=== PATIENT | female | born 2000 | race Caucasian/White ===

== ENCOUNTER 2019-08-08 19:46 | Emergency (ER) | payer OTHER ==
[2019-08-08] MEDS ORDERED: ONDANSETRON 4 MG TAB.RAPDIS PO ONE (20:35)
--- NOTE | 2019-08-08 20:37 | ER Document Report ---
ED Medical Screen (RME) - General Chief Complaint: Vomiting Stated Complaint: VOMITING Time Seen by Provider: 08/08/19 20:33 Mode of Arrival: Ambulatory Information source: Patient Notes: 18-year-old female presents emergency department with complaints of vomiting all afternoon. Complaints of nausea. Reports recent exposure to the flu. 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 Denies fever or diarrhea. No complaints of pain with void. I have greeted and performed a rapid initial assessment of this patient. A comprehensive ED assessment and evaluation of the patient, analysis of test results and completion of the medical decision making process will be conducted by additional ED providers. - Related Data Allergies/Adverse Reactions: ceftizoxime [From Cefizox] Adverse Reaction (Verified 08/08/19 20:29) Sulfa (Sulfonamide Antibiotics) Adverse Reaction (Verified 08/08/19 20:29) Home Medications: MIGRAINS. ZOLOFT. IUD Physical Exam - Vital signs Vitals: Temp Pulse Resp BP Pulse Ox 98.3 F 103 H 16 101/83 100 08/08/19 19:55 08/08/19 19:55 08/08/19 19:55 08/08/19 19:55 08/08/19 19:55 Course - Vital Signs Vital signs: Temp Pulse Resp BP Pulse Ox 98.3 F 103 H 16 101/83 100 08/08/19 19:55 08/08/19 19:55 08/08/19 19:55 08/08/19 19:55 08/08/19 19:55
[2019-08-08 21:23] LABS: APPEARANCE,URINE SLIGHTLY-CLOUDY; BILIRUBIN,URINE NEGATIVE (NEGATIVE); COLOR,URINE YELLOW; GLUCOSE, URINE NEGATIVE (NEGATIVE); KETONES,URINE 20 mg/dL (NEGATIVE); LEUKOCYTE ESTERASE,URINE TRACE (NEGATIVE); NITRITE,URINE NEGATIVE (NEGATIVE); PROTEIN,URINE NEGATIVE (NEGATIVE); URINE SPECIFIC GRAVITY 1.026; UROBILINOGEN,URINE NEGATIVE mg/dL (<2.0)
[2019-08-08 21:36] LABS: ABSOLUTE EOSINOPHILS # (AUTO) 0.1 10^3/uL (0.0-0.6); ABSOLUTE LYMPHOCYTES (AUTO) 1.1 10^3/uL (0.5-4.7); ABSOLUTE MONOCYTES (AUTO) 0.5 10^3/uL (0.1-1.4); ABSOLUTE NEUT (AUTO) 10.5 10^3/uL (1.7-8.2); BASOPHILS % (AUTO) 0.2 % (0-2); EOSINOPHILS % (AUTO) 1.1 % (0-6); HEMATOCRIT 44.5 % (36.0-47.0); HEMOGLOBIN 14.9 g/dL (12.0-15.5); LYMPHOCYTES % (AUTO) 8.9 % (13-45); MEAN CORPUSCULAR HEMOGLOBIN 30.9 pg (27.0-33.4); MEAN CORPUSCULAR HGB CONC 33.4 g/dL (32.0-36.0); MEAN CORPUSCULAR VOLUME 92 fl (80-97); MONOCYTES % (AUTO) 4.4 % (3-13); PLATELET COUNT 228 10^3/uL (150-450); RED BLOOD COUNT 4.82 10^6/uL (3.72-5.28); RED CELL DISTRIBUTION WIDTH 12.5 % (11.5-14.0); SEGMENTED NEUTROPHILS % (AUTO) 85.4 % (42-78); TOTAL CELLS COUNTED % (AUTO) 100 %; WHITE BLOOD COUNT 12.3 10^3/uL (4.0-10.5)
[2019-08-08 21:56] LABS: A TYPE INFLUENZA AG NEGATIVE (NEGATIVE); B INFLUENZA AG NEGATIVE (NEGATIVE)
[2019-08-08 22:01] LABS: ALBUMIN 5.4 g/dL (3.5-5.0); ALKALINE PHOSPHATASE 49 U/L (38-126); ANION GAP 16 (5-19); ASPARTATE AMINO TRANSFERASE 30 U/L (14-36); BILIRUBIN,DIRECT 0.1 mg/dL (0.0-0.4); BILIRUBIN,TOTAL 0.5 mg/dL (0.2-1.3); BLOOD UREA NITROGEN 15 mg/dL (7-20); CALCIUM 10.5 mg/dL (8.4-10.2); CARBON DIOXIDE 20 mmol/L (22-30); CHLORIDE 105 mmol/L (98-107); GLUCOSE 93 mg/dL (75-110); POTASSIUM 4.6 mmol/L (3.6-5.0); TOTAL PROTEIN 8.8 g/dL (6.3-8.2)
[2019-08-09] MEDS ORDERED: RINGERS SOLUTION,LACTATED 1,000 ML IV ONE (01:53)
[2019-08-09] MEDS ORDERED: ONDANSETRON HCL INJ/PF 4 MG/2 ML SDV IV ONE (01:53)
--- NOTE | 2019-08-09 01:55 | ER Document Report ---
ED GI/ - General Chief Complaint: Vomiting Stated Complaint: VOMITING Time Seen by Provider: 08/08/19 20:33 Mode of Arrival: Ambulatory Notes: Patient is a 18-year-old female that comes to the emergency department for chief complaint of lower abdominal pain and vomiting. This started earlier today, she states she vomited all day. She denies diarrhea or abnormal bowel movements. She denies fever, flank pain, dysuria, vaginal discharge or bleeding. She denies chest pain, upper abdominal pain. Pain is on both sides. She has an IUD, history of migraines and on Topamax, denies medical history otherwise. She states a few days ago she also started vomiting but this resolved. - Related Data Allergies/Adverse Reactions: ceftizoxime [From Cefizox] Adverse Reaction (Verified 08/08/19 20:29) Sulfa (Sulfonamide Antibiotics) Adverse Reaction (Verified 08/08/19 20:29) Home Medications: MIGRAINS. ZOLOFT. IUD Past Medical History - General Information source: Patient - Social History Smoking Status: Never Smoker Frequency of alcohol use: None Drug Abuse: None Lives with: Family Family History: Reviewed & Not Pertinent Patient has suicidal ideation: No Patient has homicidal ideation: No Surgical Hx: Negative - Immunizations Immunizations up to date: Yes Hx Diphtheria, Pertussis, Tetanus Vaccination: Yes Review of Systems - Review of Systems Constitutional: See HPI EENT: No symptoms reported Cardiovascular: No symptoms reported Respiratory: No symptoms reported Gastrointestinal: See HPI Genitourinary: No symptoms reported Female Genitourinary: No symptoms reported Musculoskeletal: No symptoms reported Skin: No symptoms reported Hematologic/Lymphatic: No symptoms reported Neurological/Psychological: No symptoms reported Physical Exam - Vital signs Vitals: Temp Pulse Resp BP Pulse Ox 98.3 F 103 H 16 101/83 100 08/08/19 19:55 08/08/19 19:55 08/08/19 19:55 08/08/19 19:55 08/08/19 19:55 - Notes Notes: GENERAL: Alert, interacts well. No acute distress. HEAD: Normocephalic, atraumatic. EYES: Pupils equal, round, and reactive to light. Extraocular movements intact. ENT: Oral mucosa very dry, tongue midline. Oropharynx unremarkable. Airway patent. Nares patent, no nasal septal hematoma, TM's intact. NECK: Full range of motion. Supple. Trachea midline. LUNGS: Clear to auscultation bilaterally, no wheezes, rales, or rhonchi. No respiratory distress. HEART: Borderline tachycardic, no murmur, normal rhythm ABDOMEN: There is some mild tenderness in the lower abdomen, upper abdomen is actually benign. No guarding or distention. No rigidity. Bowel sounds present. GENITOURINARY: Scant discharge, no cervical motion tenderness, no lesion. Strings are present in the cervix consistent with IUD. External exam unremarkable. Patient tolerated well. Exam performed with [place] PCT at bedside EXTREMITIES: Moves all 4 extremities spontaneously. No edema, normal radial and dorsalis pedis pulses bilaterally. No cyanosis. BACK: no cervical, thoracic, lumbar midline tenderness. No saddle anesthesia, normal distal neurovascular exam. Moves all extremities in full range of motion. NEUROLOGICAL: Alert and oriented x3. Normal speech. Cranial nerves II through XII grossly intact. PSYCH: Normal affect, normal mood. SKIN: Warm, dry, normal turgor. No rashes or lesions noted. Course - Re-evaluation Re-evalutation: CBC shows mild leukocytosis, chemistry shows mildly low bicarbonate at 20, urine does indicate dehydration. There are some bacteria and white blood cells but this was very contaminated as well. No dysuria. Pelvic exam unremarkable. After IV fluids and Zofran patient asymptomatic and well-appearing. Tachycardia resolved. Patient is sitting up, tolerated p.o. without any difficulty, requesting to leave. Urine culture was placed. I suspect this is a viral illness based on her overall presentation, discussed hydration, precautions, expectations, return precautions. Patient states appreciation and agreement. Stable at time of discharge. - Vital Signs Vital signs: Temp Pulse Resp BP Pulse Ox 98.2 F 86 16 124/72 100 08/09/19 03:55 08/09/19 03:55 08/09/19 03:55 08/09/19 03:55 08/09/19 03:55 - Laboratory Result Diagrams: 08/08/19 21:02 08/08/19 21:02 Laboratory results interpreted by me: 08/08/19 08/08/19 08/08/19 21:02 21:02 21:02 WBC 12.3 H Lymph % (Auto) 8.9 L Absolute Neuts (auto) 10.5 H Seg Neutrophils % 85.4 H Carbon Dioxide 20 L Calcium 10.5 H Total Protein 8.8 H Albumin 5.4 H Urine Ketones 20 H Ur Leukocyte Esterase TRACE H Discharge - Discharge Clinical Impression: Dehydration Vomiting Qualifiers: Vomiting type: unspecified Vomiting Intractability: non-intractable Nausea presence: with nausea Qualified Code(s): R11.2 - Nausea with vomiting, unspecified Abdominal pain Qualifiers: Abdominal location: generalized Qualified Code(s): R10.84 - Generalized abdominal pain Condition: Stable Disposition: HOME, SELF-CARE Additional Instructions: Your work-up shows dehydration but your overall evaluation is most consistent with a viral illness. This should go away with time. Take Zofran as needed for nausea, take famotidine for recovery, start with a very bland diet and clear fluids and slowly progress. Follow-up with primary care. Come back if you are worse including uncontrolled vomiting, severe worsening abdominal pain, fever, or any other concerning symptoms. Prescriptions: Famotidine [Pepcid 20 mg Tablet] 20 mg PO BID #14 tablet Ondansetron [Zofran Odt 4 mg Tablet] 1 - 2 tab PO Q4H PRN #20 tab.rapdis PRN Reason: For Nausea/Vomiting
[2019-08-09 02:51] LABS: T.VAGINALIS (WET MOUNT) NO TRICHOMONAS SEEN; WBCS (WET MOUNT) 1+ WBCS SEEN; YEAST (WET MOUNT) NO YEAST SEEN
[2019-08-09] MEDS ORDERED: ONDANSETRON ODT 4 MG TAB (6 TAB/ER DISP) PO PRN (03:38)
[2019-08-09 03:56] VITALS: BP 124/72
[2019-08-09 04:08] LABS: CHLAM PCR NOT DETECTED (NOT DETECT)
== END 2019-08-09 04:02 | disposition home or self-care (01) ==
LOC: ER 19:46
DX: E86.0 Dehydration (principal); R10.30 Lower abdominal pain, unspecified; R11.2 Nausea with vomiting, unspecified; R10.84 Generalized abdominal pain; Z88.2 Allergy status to sulfonamides; Z97.5 Presence of (intrauterine) contraceptive device
CPT/HCPCS: 99284; 96361; 96374; 36415; 87086; 87210; 85025; 81025; 80053; 81001; 87491; 87591; 87804; J2405; J7120